=== PATIENT | female | born 1970 | race African-American/Black ===

== ENCOUNTER 2017-12-21 18:24 | Emergency (ER) | payer SELFPAY ==
[2017-12-21 19:16] LABS: #Basophils 0.1 thou/uL (0.0-0.2); #Eosinphils 0.3 thou/uL (0.0-0.7); #Monocytes 0.6 thou/uL (0.11-0.59); #Neutrophils 6.3 thou/uL (1.40-6.50); %Basophils 0.6 % (0.0-1.0); %Eosinophils 3.7 % (0.0-10.0); %Lymphocytes 21.3 % (21.0-51.0); %Monocytes 6.6 % (0.0-10.0); %Neutrophils 67.8 % (42.0-75.0); Hemoglobin 12.5 g/dL (12.0-16.0); Mean Corpuscular HGB CONC 36.4 g/dL (32.0-36.0); Mean Corpuscular Hemoglobin 27.8 pg (27.0-31.0); Mean Corpuscular Volume 76.5 fL (78.0-98.0); Platelet Count 325 thou/uL (130-400); Red Blood Cell (RBC) Count 4.51 mill/uL (4.20-5.40); White Blood Cell (WBC) Count 9.3 thou/uL (4.8-10.8)
[2017-12-21 19:19] LABS: Glucose, Urine (Dipstick) Negative (Negative); Leukocyte Negative (Negative); Nitrite Negative (Negative); Protein, Urine (Dipstick) Negative (Neg-Trace)
[2017-12-21 19:20] LABS: Bilirubin Negative (Negative); Blood, Urine Trace (Negative); Urobilinogen 0.2 mg/dL (0.2-1.0)
[2017-12-21 19:24] LABS: Bacteria/HPF 3+ HPF (None Seen); RBC/HPF 0-3 HPF (0-3); Squamous Epithelial 0-3 HPF (0-3); WBC/HPF 0-3 HPF (0-3)
[2017-12-21 19:25] LABS: Yeast-All Forms Rare HPF (None Seen)
[2017-12-21 19:26] LABS: Clarity Clear (Clear)
[2017-12-21 19:30] LABS: ALT (SGPT) 25 U/L (8-55); AST (SGOT) 17 U/L (5-34); Albumin 3.5 g/dL (3.5-5.0); Alkaline Phosphatase 67 U/L (40-150); Anion Gap 11 mmol/L (10-20); BUN (Urea Nitrogen) 13 mg/dL (7.0-18.7); Bilirubin, Total Less than 0.2 mg/dL (0.2-1.2); Calc. Creatinine Clearance 0 mL/min (70-130); Calcium 8.6 mg/dL (7.8-10.44); Carbon Dioxide 25 mmol/L (22-29); Chloride 110 mmol/L (98-107); Estimated GFR-MDRD 72; Globulin 2.4 g/dL (2.4-3.5); Glucose 140 mg/dL (70-105); Potassium 3.1 mmol/L (3.5-5.1); Protein, Total 5.9 g/dL (6.0-8.3); Sodium 143 mmol/L (136-145)
[2017-12-21] MEDS ORDERED: Ketorolac Tromethamine 30 MG/ML VIAL ONE (19:43)
[2017-12-21] MEDS ORDERED: Potassium Chloride 20 MEQ TAB ONE (19:43)
--- NOTE | 2017-12-21 21:49 | RAD ---
RIGHT SHOULDER THREE VIEWS: 12/21/17 No fracture or dislocation was seen. The AC joint is not widened. There may be some bony spurring on the undersurface of the AC joint. I cannot tell if there has been old trauma to the acromion or not. IMPRESSION: No definite acute findings. See comments above regarding AC joint/acromion. Code T POS: HOME
== END 2017-12-21 20:04 | disposition home or self-care (01) ==
LOC: BURERS 18:24
DX: E87.6 Hypokalemia (principal); M25.511 Pain in right shoulder; M79.661 Pain in right lower leg; M79.662 Pain in left lower leg; I10 Essential (primary) hypertension; F32.9 Major depressive disorder, single episode, unspecified; Z79.899 Other long term (current) drug therapy
CPT/HCPCS: 80053; 81003; 81015; 83880; 84443; 85025; 96372; J1885